=== PATIENT | male | born 1955 | race Caucasian/White ===

== ENCOUNTER 2018-06-28 13:36 | Observation (INO) ==
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
[2018-06-28] MEDS ORDERED: Sod Chloride 0.9% Inj 1,000 ML IV.SIG SCH (14:00)
[2018-06-28 14:15] LABS: Baso % (Auto) 0.5 % (0.0-2.0); Eos % (Auto) 0.2 % (0.0-4.0); Hematocrit 43.9 % (39.0-51.0); Hemoglobin 15.2 gm/dL (13.0-17.0); Lymph # (Auto) 1.9 th/mm3 (1.0-4.8); Lymph % (Auto) 23.5 % (9.0-44.0); Mean Corpuscular HGB Conc 34.7 % (32.0-36.0); Mean Corpuscular Volume 89.2 fL (80.0-100.0); Mean Platelet Volume 9.2 fL (7.0-11.0); Mono # (Auto) 0.7 th/mm3 (0.0-0.9); Mono % (Auto) 8.3 % (0.0-8.0); Neut # (Auto) 5.3 th/mm3 (1.8-7.7); Neut % (Auto) 67.5 % (16.0-70.0); Platelet Count 200 th/mm3 (150-450); Red Blood Count 4.92 mil/mm3 (4.50-5.90); Red Cell Distribution Width 14.2 % (11.6-17.2); White Blood Count 7.9 th/mm3 (4.0-11.0)
[2018-06-28 14:26] LABS: Activated Partial Thrombo Time 27.3 sec (23.4-31.7); Prothrombin Time 9.9 sec (9.8-11.6)
--- NOTE | 2018-06-28 14:28 | XR ---
EXAM DATE: 06/28/2018 2:14 PM EST AGE/SEX: 63 years / Male INDICATIONS: Chest pains with shortness of breath. CLINICAL DATA: This is the patient's initial encounter. Patient reports that signs and symptoms have been present for 1 day and indicates a pain score of 6/10. MEDICAL/SURGICAL HISTORY: None. None. COMPARISON: No prior exams available for comparison. FINDINGS: A single AP view of the chest demonstrates the lungs to be symmetrically aerated without evidence of mass, infiltrate or effusion. The cardiomediastinal contours are unremarkable. Osseous structures a re intact. CONCLUSION: Negative examination. Electronically signed by: Stepan Green MD 06/28/2018 2:26 PM EST
[2018-06-28 14:34] LABS: Albumin 3.7 g/dL (3.4-5.0); Anion Gap 10 meq/L (5-15); Aspartate Aminotransferase 22 U/L (15-37); Blood Urea Nitrogen 14 mg/dL (7-18); Calcium 8.6 mg/dL (8.5-10.1); Carbon Dioxide 24.1 meq/L (21.0-32.0); Chloride 107 meq/L (98-107); Glomerular Filtration Rate 50 mL/min (>89); Glucose,Random 111 mg/dL (74-106); Magnesium 1.9 mg/dL (1.5-2.5); Potassium 4.6 meq/L (3.5-5.1); Sodium 141 meq/L (136-145)
[2018-06-28 14:37] LABS: Alanine Aminotransferase 36 U/L (12-78); Alkaline Phosphatase 119 U/L (45-117); Total Protein 7.3 g/dL (6.4-8.2)
[2018-06-28] MEDS ORDERED: Acetaminophen 500 MG Tablet PO PRN (15:32)
[2018-06-28] MEDS ORDERED: ALPRAZolam 0.25 MG Tablet PO PRN (15:33)
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
[2018-06-28] MEDS ORDERED: Dextrose 50% in Water 50 ML Vial IV.PUSH PRN (15:52)
[2018-06-28 16:56] LABS: Bilirubin,Urine Negative (Negative); Clarity,Urine Clear (Clear); Color,Urine Yellow (Yellw/Straw); Glucose,Urine (UA) Negative (Negative); Leukocyte Esterase,Urine Negative (Negative); Mucus,Urine Few /lpf (Occasional); Nitrite,Urine Negative (Negative); Specific Gravity,Urine 1.008 (1.002-1.035)
[2018-06-28 17:24] LABS: Creatine Kinase 54 U/L (39-308)
[2018-06-28] MEDS: amLODIPine 5 MG Tablet PO SCH (17:47)
[2018-06-28] MEDS: Insulin NovoLIN Regular Correctional Sugar Inj SQ SCH ×2 (17:47→22:09)
[2018-06-28 20:24] VITALS: O2SAT 96
[2018-06-28 21:55] LABS: Creatine Kinase 162 U/L (39-308)
[2018-06-28 21:59] LABS: Creatine Kinase 171 U/L (39-308)
[2018-06-29 08:07] LABS: Calcium 8.9 mg/dL (8.5-10.1); Carbon Dioxide 25.7 meq/L (21.0-32.0); Potassium 3.8 meq/L (3.5-5.1)
--- NOTE | 2018-06-29 08:28 | ECG ---
Date Performed: 06/28/2018 Time Performed: 16:59:56 PTAGE: 63 years EKG: Sinus rhythm INFERIOR MYOCARDIAL INFARCTION ABNORMAL ECG Since PREVIOUS TRACING , no significant change noted PREVIOUS TRACIN06/28/2018 13.43 DOCTOR: Lu Farr Interpretating Date/Time 06/29/2018 08:27:51
--- NOTE | 2018-06-29 08:28 | ECG ---
Date Performed: 06/28/2018 Time Performed: 13:43:53 PTAGE: 63 years EKG: Sinus rhythm NORMAL ECG NO PREVIOUS TRACING DOCTOR: Lu Farr Interpretating Date/Time 06/29/2018 08:26:53
--- NOTE | 2018-06-29 08:31 | ECG ---
Date Performed: 06/28/2018 Time Performed: 20:29:30 PTAGE: 63 years EKG: Sinus rhythm NORMAL ECG Since PREVIOUS TRACING , no significant change noted DOCTOR: Lu Farr Interpretating Date/Time 06/29/2018 08:30:27
[2018-06-29 08:47] VITALS: BP 170/97; RESP 15; TEMP 97
[2018-06-29] MEDS ORDERED: Aspirin 325 MG Tablet PO SCH (09:00)
[2018-06-29] MEDS: Insulin NovoLIN Regular Correctional Sugar Inj SQ SCH (09:04)
[2018-06-29] MEDS: amLODIPine 5 MG Tablet PO SCH (09:04)
[2018-06-29 11:41] VITALS: PULSE 84
--- NOTE | 2018-06-29 12:58 | NM ---
EXAM DATE: 06/29/2018 12:32 PM EST AGE/SEX: 63 years / Male INDICATIONS: Angina. . Chest pain. CLINICAL DATA: This is the patient's initial encounter. Patient reports that signs and symptoms have been present for 1 day and indicates a pain score of 2/10. MEDICAL/SURGICAL HISTORY: Hypertension. Splenectomy. Left kidney removed. COMPARISON: No prior exams available for comparison. DOSE: 8.2 mCi Tc 99m Myoview at rest 26.7 mCi [id number] at stress REST HEART RATE: 81 BPM TARGET HEART RATE: 133 BPM MAX HEART RATE: 146 BPM REST BLOOD PRESSURE: 160/94 mmHg MAX BLOOD PRESSURE: 178/80 mmHg EJECTION FRACTION: >70 % TECHNIQUE: The patient underwent upright treadmill exercise in the chest pain center. Continuous EC G tracing was monitored during stress. Gated SPECT imaging was performed after stress, and conventio nal SPECT imaging was performed at rest. The examination was performed on a SPECT/CT scanner, both a ttenuation-corrected and non-corrected datasets were reviewed. FINDINGS: Distribution: The maximum perfused segment at stress is in the anterior wall. Perfusion: The pattern of perfusion at stress is within normal limits. Gated Study: There are intact wall motion and wall thickening without hypokinetic or dyskinetic segme nts. The ejection fraction is calculated at >70%. RISK CATEGORY: Low (<1% Annual Motality Rate) CONCLUSION: 1. Negative examination. 2. No evidence of stressed induced or fixed perfusion abnormalities. 3. Normal wall motion and ejection fraction. Electronically signed by: Miki Irwin MD 06/29/2018 12:56 PM EST
--- NOTE | 2018-06-29 18:25 | TR ---
Date Performed: 06/29/2018 Time Performed: 11:19:37 DOCTOR: Lu Farr DRUG LIST: CLINICAL HISTORY: REASON FOR TEST: REASON FOR ENDING: OBSERVATION: CONCLUSION: NUC ETT. NO CP. Maximum GE=735 % Max HR Achieved=94.0% Maximum UV=365/80 Total Exer cise Time=10:01 No ischemia COMMENTS: No ischemia
== END 2018-06-29 13:46 | disposition home or self-care (01) ==
LOC: NEDA 13:36 → NEPE 13:36 → NEPFCDU 16:11
PROVIDERS: ADMIT Internal Medicine Interventional Cardiology; ATTEND Internal Medicine Interventional Cardiology
DX: N28.9 Disorder of kidney and ureter, unspecified; E11.9 Type 2 diabetes mellitus without complications; R07.89 Other chest pain; I10 Essential (primary) hypertension; E78.5 Hyperlipidemia, unspecified